=== PATIENT | female | born 1960 | race Caucasian/White ===

== ENCOUNTER 2016-09-11 11:51 | Observation (INO) | payer OTHER ==
[~2016-09-11] VITALS: Ht 157.5 cm; Wt 98.9 kg
[~2016-09-11 11:51] MED LIST: ALBUTEROL SULF8.5 GM IH; AMLODIPINE BESYL5 MG PO; ASPIRIN325 MG PO; BUSPAR10 MG PO; CITALOPRAM10 MG/5 M1 PO; CITRACAL200 MG PO; CYMBALTA30 MG PO; CYMBALTA60 MG PO; Cymbalta PO; DUONEB 2.5-0.5 M3 ML IH; ESTRACE1 MG PO; ESTRADIOL1 MG PO; FLEXERIL10 MG PO; FLONASE16 G1 BOTH NARES; GABAPENTIN300 MG PO; GEMFIBROZIL600 MG PO; GLIMEPIRIDE2 MG PO; HYDRALAZINE HCL25 MG PO; HYDROCHLOROTHIA25 MG PO; Hydrodiuril,Oretic,E PO; IMDUR60 MG PO; LANTUS 10100 UNITS/ SC; LEVAQUIN750 MG PO; LEVOTHYROXINE125 MCG PO; LEVOTHYROXINE200 MC1 PO; LEVOTHYROXINE300 MCG PO; LISINOPRIL10 MG PO; LISINOPRIL20 MG PO; LOPRESSOR25 MG PO; LYRICA75 MG PO; Levothroid,Synthroid PO; Lopid PO; MOBIC7.5 MG PO; MOTRIN600 MG PO; NEURONTIN300 MG PO; NEXIUM40 MG PO; OMEPRAZOLE40 M1 PO; PHENERGAN12.5 M1 PO; PRAVASTATIN SOD20 MG PO; PRILOSEC20 MG PO; PRILOSEC40 MG PO; PRINIVIL20 MG PO; REQUIP0.5 MG PO; SINGULAIR10 MG PO; SYNTHROID150 MCG PO; TAMIFLU30 MG PO; TRAMADOL HCL50 MG PO; TRAZODONE HCL50 MG PO; VALACYCLOVIR500 MG PO; VITAMIN D50000 UNIT PO; VYBRID PO; Vitamin D, Drisdol PO; ZANTAC150 MG PO; ZESTRIL,PRINIVI10 M1 PO; ZESTRIL,PRINIVI10 MG PO; ZYRTEC10 MG PO; ZyrTEC PO
[2016-09-11 13:15] LABS: HEMATOCRIT 43.9 % (36.0-46.0); MCH 28.7 PG (29.0-34.0); MCHC 33.3 G/DL (30.0-36.0); MCV 86.2 FL (83-99); MEAN PLAT.VOLUME 9.7 uM^3 (9.5-12.4); PLATELET COUNT 315 K/uL (156-360); RBC DIS.WIDTH-CV 13.3 % (11.8-14.6); RBC DIS.WIDTH-SD 41.5 % (39-53); RED BLOOD COUNT 5.09 M/uL (3.80-5.20); WHITE BLOOD COUNT 9.7 K/uL (4.1-10.2)
[2016-09-11 13:26] LABS: CHLORIDE 106 mEq/L (99-109); POTASSIUM 4.2 mEq/L (3.7-5.4); SODIUM 142 mEq/L (136-147)
[2016-09-11 13:28] LABS: GLUCOSE 127 mg/dL (70-99)
[2016-09-11 13:29] LABS: ANION GAP 12 MEQ/L (2-14)
[2016-09-11 13:32] LABS: GFR ESTIMATE (CALCULATED) > 59 mL/min/
[2016-09-11 13:33] LABS: UREA NITROGEN (BUN) 16 mg/dL (9-23)
[2016-09-11 13:41] LABS: TROP-I INTERPRETATION NEGATIVE; TROPONIN-I 0.04 ng/mL (0.0-0.30)
[2016-09-11] MEDS ORDERED: BUSPAR15 MG PO (16:14)
[2016-09-11] MEDS ORDERED: LANTUS 10100 UNITS/ SC (16:16)
[2016-09-11] MEDS ORDERED: LEVBID0.375 MG PO (16:18)
[2016-09-11] MEDS ORDERED: VENTOLIN HFA18 GM IH (16:19)
[2016-09-11 17:05] LABS: SAMPLE HEMOLYSIS CHECK 0; SAMPLE ICTERIC CHECK 0; SAMPLE LIPEMIA CHECK 0
[2016-09-11 17:11] LABS: HDL CHOLESTEROL 29 MG/DL (Desirable>=50); LDL CHOLESTEROL 93 mg/dL (Desirable<100); NON-HDL CHOLESTEROL 145 mg/dL (Desirable<160); TOTAL CHOLESTEROL 174 mg/dL (Desirable<200); TRIGLYCERIDES 262 MG/DL (Normal: <150)
[2016-09-11 18:31] VITALS: BP 109/58
[2016-09-11 18:31] LABS: POINT-OF-CARE METER ID UU13113700
[2016-09-11 19:00] VITALS: BP 133/76
[2016-09-11 19:14] LABS: TROP-I INTERPRETATION NEGATIVE; TROPONIN-I 0.02 ng/mL (0.0-0.30)
[2016-09-11 20:31] LABS: ADD MIUA? NO; BILIRUBIN NEGATIVE; BLOOD NEGATIVE; COLOR YELLOW ((YELLOW)); GLUCOSE (STRIP) NEGATIVE; KETONES NEGATIVE; LEUKOCYTES NEGATIVE; NITRITE NEGATIVE; PROTEIN (STRIP) NEGATIVE; SPECIFIC GRAVITY 1.013 (1.000-1.030); UCUL ADDED? NO; UROBILINOGEN 0.2 MG/DL (0.2-1.0)
[2016-09-12 00:08] VITALS: BP 120/62
[2016-09-12 04:03] VITALS: BP 97/54
[2016-09-12 07:19] LABS: HEMATOCRIT 42.2 % (36.0-46.0); MCH 29.3 PG (29.0-34.0); MCHC 33.2 G/DL (30.0-36.0); MCV 88.3 FL (83-99); MEAN PLAT.VOLUME 9.9 uM^3 (9.5-12.4); PLATELET COUNT 278 K/uL (156-360); RBC DIS.WIDTH-CV 13.7 % (11.8-14.6); RBC DIS.WIDTH-SD 43.7 % (39-53); RED BLOOD COUNT 4.78 M/uL (3.80-5.20)
[2016-09-12 07:43] LABS: ANION GAP 8 MEQ/L (2-14); CHLORIDE 104 MEQ/L (99-109); GFR ESTIMATE (CALCULATED) > 59 mL/min/; GLUCOSE 144 mg/dL (70-99); POTASSIUM 4.1 MEQ/L (3.7-5.4); SAMPLE HEMOLYSIS CHECK 0; SAMPLE ICTERIC CHECK 0; SAMPLE LIPEMIA CHECK 0; SODIUM 138 MEQ/L (136-147); UREA NITROGEN (BUN) 18 mg/dL (9-23)
[2016-09-12 07:49] LABS: TROP-I INTERPRETATION NEGATIVE; TROPONIN-I 0.01 ng/mL (0.0-0.30)
[2016-09-12 08:05] LABS: POINT-OF-CARE METER ID UU13113700
[2016-09-12 08:17] VITALS: BP 120/61
[2016-09-12] MEDS ORDERED: NEXIUM40 MG PO (11:04)
[2016-09-12 12:37] LABS: POINT-OF-CARE METER ID UU13113700
== END 2016-09-12 13:35 | disposition home or self-care (01) ==
LOC: EME 11:51 → 5WEST 15:13 → EDOF 15:13 → 5WEST 17:49
PROVIDERS: Hospitalist; Internal Medicine; Physician Assistant
DX: R07.9 Chest pain, unspecified (principal); K21.9 Gastro-esophageal reflux disease without esophagitis; E11.43 Type 2 diabetes mellitus with diabetic autonomic (poly)neuropathy; K31.84 Gastroparesis; I10 Essential (primary) hypertension; E78.5 Hyperlipidemia, unspecified; E03.9 Hypothyroidism, unspecified; G47.30 Sleep apnea, unspecified; Z79.4 Long term (current) use of insulin; Z79.82 Long term (current) use of aspirin; Z88.1 Allergy status to other antibiotic agents; Z88.8 Allergy status to other drugs, medicaments and biological substances; Z82.49 Family history of ischemic heart disease and other diseases of the circulatory system; Z82.0 Family history of epilepsy and other diseases of the nervous system; Z83.3 Family history of diabetes mellitus
CPT/HCPCS: 71020; 80048; 80061; 81003; 82948; 84484; 85027; 93005; 99202; 99281; 99284; G0378

== ENCOUNTER → 2016-10-16 | Outpatient (CLI) | payer OTHER ==
[~2016-10-16] MED LIST changes: +AUGMENTIN875 MG PO; +BUSPAR15 MG PO; +LEVBID0.375 MG PO; +TESSALON200 MG PO; +VENTOLIN HFA18 GM IH
== END | disposition home or self-care (01) ==
LOC: NUC 09-28 07:30
DX: R11.0 Nausea (principal)
CPT/HCPCS: 78264; A9541

== ENCOUNTER 2016-10-25 10:10 | Emergency (ER) | payer OTHER ==
[~2016-10-25] VITALS: Ht 157.5 cm; Wt 101.0 kg
[~2016-10-25 10:10] MED LIST changes: -AUGMENTIN875 MG PO; -TESSALON200 MG PO
[2016-10-25 14:17] VITALS: BP 114/70
== END 2016-10-25 14:17 | disposition home or self-care (01) ==
LOC: EME 10:10
DX: H10.9 Unspecified conjunctivitis (principal); J06.9 Acute upper respiratory infection, unspecified; Z98.42 Cataract extraction status, left eye
CPT/HCPCS: 99281; 99284

== ENCOUNTER 2016-10-29 10:54 | Emergency (ER) | payer OTHER ==
[~2016-10-29] VITALS: Ht 157.5 cm; Wt 100.4 kg
[2016-10-29] MEDS ORDERED: TESSALON200 MG PO (11:51)
[2016-10-29] MEDS ORDERED: AUGMENTIN875 MG PO (11:51)
[2016-10-29 12:00] VITALS: BP 142/87
== END 2016-10-29 12:01 | disposition home or self-care (01) ==
LOC: EME 10:54
DX: J01.90 Acute sinusitis, unspecified (principal); J06.9 Acute upper respiratory infection, unspecified; J45.909 Unspecified asthma, uncomplicated; E11.9 Type 2 diabetes mellitus without complications; E78.5 Hyperlipidemia, unspecified; I10 Essential (primary) hypertension; K21.9 Gastro-esophageal reflux disease without esophagitis
CPT/HCPCS: 71020; 99281; 99284

== ENCOUNTER 2016-11-07 16:57 | Inpatient (IN) | payer OTHER ==
[~2016-11-07] VITALS: Ht 157.5 cm; Wt 116.9 kg
[~2016-11-07 16:57] MED LIST changes: +AUGMENTIN875 MG PO; +TESSALON200 MG PO
[2016-11-07 17:36] LABS: HEMATOCRIT 44.8 % (36.0-46.0); MCH 28.5 PG (29.0-34.0); MCHC 32.1 G/DL (30.0-36.0); MCV 88.5 FL (83-99); MEAN PLAT.VOLUME 9.2 uM^3 (9.5-12.4); PLATELET COUNT 325 K/uL (156-360); RBC DIS.WIDTH-CV 13.4 % (11.8-14.6); RBC DIS.WIDTH-SD 43.4 % (39-53); RED BLOOD COUNT 5.06 M/uL (3.80-5.20); WHITE BLOOD COUNT 10.6 K/uL (4.1-10.2)
[2016-11-07 17:49] LABS: CHLORIDE 104 mEq/L (99-109); POTASSIUM 3.9 mEq/L (3.7-5.4); SODIUM 138 mEq/L (136-147)
[2016-11-07 17:51] LABS: GLUCOSE 160 mg/dL (70-99)
[2016-11-07 17:52] LABS: ANION GAP 13 MEQ/L (2-14)
[2016-11-07 17:55] LABS: GFR ESTIMATE (CALCULATED) 55 mL/min/; UREA NITROGEN (BUN) 15 mg/dL (9-23)
[2016-11-07 18:02] LABS: TROP-I INTERPRETATION NEGATIVE; TROPONIN-I 0.01 ng/mL (0.0-0.30)
[2016-11-07] MEDS ORDERED: HYDROCHLOROTHIA25 MG PO (20:03)
[2016-11-07] MEDS ORDERED: BUSPIRONE HCL15 MG PO (20:03)
[2016-11-07] MEDS ORDERED: SINGULAIR10 MG PO (20:03)
[2016-11-07] MEDS ORDERED: OMEPRAZOLE40 M1 PO (20:04)
[2016-11-07] MEDS ORDERED: CYMBALTA60 MG PO (20:04)
[2016-11-07] MEDS ORDERED: ESTRADIOL1 MG PO (20:05)
[2016-11-07] MEDS ORDERED: SYMAX DUOTAB0.375 MG PO (20:06)
[2016-11-07] MEDS ORDERED: VALACYCLOVIR500 MG PO (20:06)
[2016-11-07] MEDS ORDERED: LEVOTHYROXINE300 MCG PO ×2 (20:07→20:08)
[2016-11-07] MEDS ORDERED: METOPROLOL TART25 MG PO (20:09)
[2016-11-07] MEDS ORDERED: LO-DOSE ASPIRIN81 M1 PO (20:10)
[2016-11-07] MEDS ORDERED: LISINOPRIL10 MG PO (20:10)
[2016-11-07] MEDS ORDERED: AMARYL2 MG PO (20:10)
[2016-11-07] MEDS ORDERED: DESYREL100 MG PO (20:11)
[2016-11-07] MEDS ORDERED: LANTUS 10100 UNITS/ SC ×2 (20:11)
[2016-11-07] MEDS ORDERED: TRADJENTA5 MG PO (20:12)
[2016-11-07] MEDS ORDERED: ISOSORBIDE MONO60 MG PO (20:12)
[2016-11-07] MEDS ORDERED: PRAVASTATIN SOD40 MG PO (20:12)
[2016-11-07 22:17] LABS: INTER. NORMALIZED RATIO 1.1; PROTHROMBIN TIME 11.3 (9.2-11.2)
[2016-11-07 22:20] LABS: PTT 73.1 (25-32)
[2016-11-07 22:45] VITALS: BP 128/79
[2016-11-07 23:00] VITALS: BP 128/82
[2016-11-07 23:15] VITALS: BP 122/64
[2016-11-07 23:20] VITALS: BP 122/64
[2016-11-07 23:30] VITALS: BP 120/73
[2016-11-08] VITALS (9 sets, daily range): BP systolic 112–168; BP diastolic 68–114
[2016-11-08 00:24] LABS: METH RESISTANT S AUREUS PCR NEGATIVE (NEGATIVE)
[2016-11-08 00:28] LABS: PROBE CHECK PASS; SPECIMEN PROCESSING CONTROL PASS
[2016-11-08 05:52] LABS: HEMATOCRIT 41.1 % (36.0-46.0); MCH 28.4 PG (29.0-34.0); MCHC 31.9 G/DL (30.0-36.0); MEAN PLAT.VOLUME 9.5 uM^3 (9.5-12.4); PLATELET COUNT 315 K/uL (156-360); RBC DIS.WIDTH-CV 13.5 % (11.8-14.6); RBC DIS.WIDTH-SD 44.2 % (39-53); RED BLOOD COUNT 4.62 M/uL (3.80-5.20); WHITE BLOOD COUNT 10.2 K/uL (4.1-10.2)
[2016-11-08 06:13] LABS: HDL CHOLESTEROL 25 MG/DL (Desirable>=50); LDL CHOLESTEROL 98 mg/dL (Desirable<100); NON-HDL CHOLESTEROL 157 mg/dL (Desirable<160); TOTAL CHOLESTEROL 182 mg/dL (Desirable<200); TRIGLYCERIDES 294 MG/DL (Normal: <150)
[2016-11-08] MEDS ORDERED: AMLODIPINE BESYL5 MG PO (07:19)
[2016-11-08] MEDS ORDERED: NITROSTAT0.4 MG SL (15:37)
[2016-11-08 16:28] LABS: ANION GAP 11 MEQ/L (2-14); CHLORIDE 103 MEQ/L (99-109); POTASSIUM 3.7 MEQ/L (3.7-5.4); SAMPLE HEMOLYSIS CHECK 0; SAMPLE ICTERIC CHECK 0; SAMPLE LIPEMIA CHECK 0; SODIUM 138 MEQ/L (136-147)
[2016-11-08 16:33] LABS: GFR ESTIMATE (CALCULATED) > 59 mL/min/; GLUCOSE 135 mg/dL (70-99); UREA NITROGEN (BUN) 13 mg/dL (9-23)
[2016-11-08 16:38] LABS: TROP-I INTERPRETATION NEGATIVE; TROPONIN-I < 0.01 ng/mL (0.0-0.30)
== END 2016-11-08 18:46 | disposition home or self-care (01) | DRG 281 ==
LOC: EME 16:57 → EDOF 19:52 → 4WEST 21:48 → EDOF 21:48 → 4WEST 22:41
PROVIDERS: Internal Medicine Cardiovascular Disease; Physician Assistant Medical
DX: I21.3 ST elevation (STEMI) myocardial infarction of unspecified site (principal); Z68.42 Body mass index [BMI] 45.0-49.9, adult; I25.10 Atherosclerotic heart disease of native coronary artery without angina pectoris; I10 Essential (primary) hypertension; E78.5 Hyperlipidemia, unspecified; E66.9 Obesity, unspecified; F32.9 Major depressive disorder, single episode, unspecified; M79.7 Fibromyalgia; E03.9 Hypothyroidism, unspecified; G25.81 Restless legs syndrome; E11.43 Type 2 diabetes mellitus with diabetic autonomic (poly)neuropathy
CPT/HCPCS: 36415; 71020; 80048; 80048 91; 80061; 84484; 85025; 85027; 85347; 85610; 85730; 86850; 86900; 86901; 87641; 93005; 94799; 99281; 99285; C1769; C1887; J1644; J2250; J3010; J7040

== ENCOUNTER 2016-11-17 16:23 | Emergency (ER) | payer OTHER ==
[~2016-11-17] VITALS: Ht 157.5 cm; Wt 96.6 kg
[~2016-11-17 16:23] MED LIST changes: +AMARYL2 MG PO; +BUSPIRONE HCL15 MG PO; +DESYREL100 MG PO; +ISOSORBIDE MONO60 MG PO; +LO-DOSE ASPIRIN81 M1 PO; +METOPROLOL TART25 MG PO; +NITROSTAT0.4 MG SL; +PRAVASTATIN SOD40 MG PO; +SYMAX DUOTAB0.375 MG PO; +TRADJENTA5 MG PO
[2016-11-17 16:53] LABS: MCH 28.5 PG (29.0-34.0); MCHC 32.6 G/DL (30.0-36.0); MCV 87.6 FL (83-99); MEAN PLAT.VOLUME 9.6 uM^3 (9.5-12.4); PLATELET COUNT 319 K/uL (156-360); RBC DIS.WIDTH-CV 12.9 % (11.8-14.6); RBC DIS.WIDTH-SD 41.3 % (39-53); RED BLOOD COUNT 4.91 M/uL (3.80-5.20)
[2016-11-17 17:03] LABS: CHLORIDE 103 mEq/L (99-109); POTASSIUM 4.1 mEq/L (3.7-5.4); SODIUM 137 mEq/L (136-147)
[2016-11-17 17:05] LABS: GLUCOSE 211 mg/dL (70-99)
[2016-11-17 17:06] LABS: ANION GAP 10 MEQ/L (2-14)
[2016-11-17 17:09] LABS: GFR ESTIMATE (CALCULATED) > 59 mL/min/; UREA NITROGEN (BUN) 16 mg/dL (9-23)
[2016-11-17 17:15] LABS: TROP-I INTERPRETATION NEGATIVE; TROPONIN-I < 0.01 ng/mL (0.0-0.30)
[2016-11-17 19:36] LABS: TROP-I INTERPRETATION NEGATIVE; TROPONIN-I < 0.01 ng/mL (0.0-0.30)
[2016-11-17 19:50] VITALS: BP 118/71
== END 2016-11-17 20:08 | disposition home or self-care (01) ==
LOC: EME 16:23
PROVIDERS: Emergency Medicine
DX: R07.9 Chest pain, unspecified (principal); J45.909 Unspecified asthma, uncomplicated; G89.29 Other chronic pain; E11.9 Type 2 diabetes mellitus without complications; E78.5 Hyperlipidemia, unspecified; I10 Essential (primary) hypertension; K21.9 Gastro-esophageal reflux disease without esophagitis; Z79.4 Long term (current) use of insulin; Z79.82 Long term (current) use of aspirin
CPT/HCPCS: 71010; 80048; 84484; 85027; 93005; 99281; 99285

== ENCOUNTER 2016-11-28 11:28 | Observation (INO) | payer OTHER ==
[~2016-11-28] VITALS: Ht 157.5 cm; Wt 95.0 kg
[2016-11-28 12:54] LABS: HEMATOCRIT 42.7 % (36.0-46.0); MCH 28.6 PG (29.0-34.0); MCHC 33.3 G/DL (30.0-36.0); MCV 85.9 FL (83-99); MEAN PLAT.VOLUME 9.6 uM^3 (9.5-12.4); PLATELET COUNT 376 K/uL (156-360); RBC DIS.WIDTH-CV 12.7 % (11.8-14.6); RBC DIS.WIDTH-SD 39.9 % (39-53); RED BLOOD COUNT 4.97 M/uL (3.80-5.20); WHITE BLOOD COUNT 10.4 K/uL (4.1-10.2)
[2016-11-28 13:01] LABS: CHLORIDE 106 mEq/L (99-109); SODIUM 140 mEq/L (136-147)
[2016-11-28 13:03] LABS: GLUCOSE 114 mg/dL (70-99)
[2016-11-28 13:04] LABS: ANION GAP 10 MEQ/L (2-14)
[2016-11-28 13:05] LABS: TOTAL BILIRUBIN 0.4 mg/dL (0.0-1.0)
[2016-11-28 13:06] LABS: ALKALINE PHOSPHATASE 48 IU/L (3-129)
[2016-11-28 13:07] LABS: GFR ESTIMATE (CALCULATED) 55 mL/min/
[2016-11-28 13:08] LABS: UREA NITROGEN (BUN) 13 mg/dL (9-23)
[2016-11-28 13:11] LABS: TROP-I INTERPRETATION NEGATIVE; TROPONIN-I < 0.01 ng/mL (0.0-0.30)
[2016-11-28 15:51] VITALS: BP 124/80
[2016-11-28] MEDS ORDERED: IMDUR120 MG PO (16:11)
[2016-11-28] MEDS ORDERED: NORVASC10 MG PO (16:13)
[2016-11-28] MEDS ORDERED: RANEXA500 MG PO (16:17)
[2016-11-28] MEDS ORDERED: ZANTAC300 MG PO (16:18)
[2016-11-28 19:32] LABS: TROP-I INTERPRETATION NEGATIVE; TROPONIN-I 0.01 ng/mL (0.0-0.30)
[2016-11-28 20:00] VITALS: BP 115/62
[2016-11-29 00:08] VITALS: BP 101/55; BP 131/61
[2016-11-29 01:09] LABS: TROP-I INTERPRETATION NEGATIVE; TROPONIN-I < 0.01 ng/mL (0.0-0.30)
[2016-11-29 03:59] VITALS: BP 110/60
[2016-11-29 07:37] VITALS: BP 118/71
[2016-11-29] MEDS ORDERED: NITROGLYCERIN0.4 MG SL (11:00)
== END 2016-11-29 11:46 | disposition home or self-care (01) ==
LOC: EME 11:28 → EDOF 14:49 → 5WEST 14:49
PROVIDERS: Hospitalist
DX: R07.89 Other chest pain (principal); I10 Essential (primary) hypertension; E78.5 Hyperlipidemia, unspecified; E11.9 Type 2 diabetes mellitus without complications; G47.30 Sleep apnea, unspecified; K21.9 Gastro-esophageal reflux disease without esophagitis; F39 Unspecified mood [affective] disorder; Z79.4 Long term (current) use of insulin; F32.9 Major depressive disorder, single episode, unspecified; F41.9 Anxiety disorder, unspecified; G25.81 Restless legs syndrome; M79.7 Fibromyalgia; E03.9 Hypothyroidism, unspecified; E66.9 Obesity, unspecified
CPT/HCPCS: 71020; 80048; 80053; 84484; 85027; 93005; 99281; 99285; G0378; J1644

== ENCOUNTER 2016-12-23 18:03 | Emergency (ER) | payer OTHER ==
[~2016-12-23] VITALS: Ht 157.5 cm; Wt 93.8 kg
[~2016-12-23 18:03] MED LIST changes: +IMDUR120 MG PO; +NITROGLYCERIN0.4 MG SL; +NORVASC10 MG PO; +RANEXA500 MG PO; +ZANTAC300 MG PO
[2016-12-23 19:11] LABS: HEMATOCRIT 44.7 % (36.0-46.0); MCH 28.3 PG (29.0-34.0); MCHC 32.4 G/DL (30.0-36.0); MCV 87.1 FL (83-99); MEAN PLAT.VOLUME 9.5 uM^3 (9.5-12.4); PLATELET COUNT 333 K/uL (156-360); RBC DIS.WIDTH-CV 12.9 % (11.8-14.6); RBC DIS.WIDTH-SD 40.8 % (39-53); RED BLOOD COUNT 5.13 M/uL (3.80-5.20); WHITE BLOOD COUNT 9.1 K/uL (4.1-10.2)
[2016-12-23 19:28] LABS: CHLORIDE 106 mEq/L (99-109); POTASSIUM 4.1 mEq/L (3.7-5.4); SODIUM 141 mEq/L (136-147)
[2016-12-23 19:30] LABS: GLUCOSE 149 mg/dL (70-99)
[2016-12-23 19:31] LABS: ANION GAP 9 MEQ/L (2-14)
[2016-12-23 19:33] LABS: TROP-I INTERPRETATION NEGATIVE; TROPONIN-I 0.01 ng/mL (0.0-0.30)
[2016-12-23 19:34] LABS: GFR ESTIMATE (CALCULATED) > 59 mL/min/; UREA NITROGEN (BUN) 15 mg/dL (9-23)
[2016-12-23 20:31] VITALS: BP 106/66
== END 2016-12-23 21:03 | disposition home or self-care (01) ==
LOC: EME 18:03
DX: I20.9 Angina pectoris, unspecified (principal); I25.2 Old myocardial infarction; E11.9 Type 2 diabetes mellitus without complications; J45.909 Unspecified asthma, uncomplicated; I10 Essential (primary) hypertension; Z79.4 Long term (current) use of insulin; Z79.84 Long term (current) use of oral hypoglycemic drugs; Z79.82 Long term (current) use of aspirin; E03.9 Hypothyroidism, unspecified; Z88.1 Allergy status to other antibiotic agents; Z88.2 Allergy status to sulfonamides; Z88.8 Allergy status to other drugs, medicaments and biological substances
CPT/HCPCS: 71020; 80048; 84484; 85027; 93005; 99281; 99284

== ENCOUNTER 2017-05-21 08:04 | Emergency (ER) | payer OTHER ==
[~2017-05-21] VITALS: Ht 157.5 cm; Wt 90.8 kg
[2017-05-21 08:35] LABS: BASOPHIL COUNT 0.1 K/uL (0-0.1); EOSINOPHIL (%) 1.6 % (0-5); EOSINOPHIL COUNT 0.2 K/uL (0-0.3); HEMATOCRIT 42.7 % (36.0-46.0); IMMATURE GRANULOCYTE (%) 0.3 % (0.0-0.7); INSTRUMENT ABS NEUTROPHIL CT 5.8 K/uL; LYMPHOCYTE COUNT 2.7 K/uL (1.0-2.8); MCH 27.3 PG (29.0-34.0); MCHC 31.9 G/DL (30.0-36.0); MCV 85.6 FL (83-99); MEAN PLAT.VOLUME 9.7 uM^3 (9.5-12.4); MONOCYTE (%) 8.1 % (3-12); MONOCYTE COUNT 0.8 K/uL (0-0.8); NEUTROPHIL COUNT 5.8 K/uL (1.8-6.4); PLATELET COUNT 293 K/uL (156-360); RBC DIS.WIDTH-SD 40.5 % (39-53); RED BLOOD COUNT 4.99 M/uL (3.80-5.20); WHITE BLOOD COUNT 9.5 K/uL (4.1-10.2)
[2017-05-21 08:44] LABS: ADD MIUA? YES; BILIRUBIN NEGATIVE; BLOOD SMALL; COLOR YELLOW ((YELLOW)); GLUCOSE (STRIP) >=500; KETONES NEGATIVE; LEUKOCYTES NEGATIVE; NITRITE NEGATIVE; PROTEIN (STRIP) NEGATIVE; SPECIFIC GRAVITY 1.026 (1.000-1.030); UROBILINOGEN 0.2 MG/DL (0.2-1.0)
[2017-05-21 08:48] LABS: CHLORIDE 103 mEq/L (99-109); POTASSIUM 3.9 mEq/L (3.7-5.4); SODIUM 136 mEq/L (136-147)
[2017-05-21 08:50] LABS: GLUCOSE 370 mg/dL (70-99)
[2017-05-21 08:51] LABS: ANION GAP 8 MEQ/L (2-14)
[2017-05-21 08:53] LABS: BACTERIA RARE /HPF; EPITHELIAL CELLS 4+ /HPF; MUCUS NONE SEEN /LPF; WHITE BLOOD CELLS 0-5 /HPF (0-5)
[2017-05-21 08:54] LABS: GFR ESTIMATE (CALCULATED) 55 mL/min/
[2017-05-21 08:55] LABS: UREA NITROGEN (BUN) 18 mg/dL (9-23)
[2017-05-21] MEDS ORDERED: TYLENOL WITH C1 EACH PO (10:50)
[2017-05-21 11:09] VITALS: BP 134/79
== END 2017-05-21 11:13 | disposition home or self-care (01) ==
LOC: EME 08:04
PROVIDERS: Emergency Medicine
DX: N20.0 Calculus of kidney (principal); J45.909 Unspecified asthma, uncomplicated; K21.9 Gastro-esophageal reflux disease without esophagitis; F41.9 Anxiety disorder, unspecified; I25.2 Old myocardial infarction; M79.7 Fibromyalgia; Z79.82 Long term (current) use of aspirin; Z88.8 Allergy status to other drugs, medicaments and biological substances
CPT/HCPCS: 74176; 80048; 81003; 85025; 99281; 99284